=== PATIENT | female | born 1990 | race Caucasian/White ===

== ENCOUNTER 2023-02-24 20:10 | Inpatient (IN) | payer OTHER ==
[2023-02-24 20:48] VITALS: BMI 22.0
[2023-02-24] MEDS ORDERED: hydrOXYzine PAMOATE 25 MG CAPSULE (FP) PO PRN (21:46)
[2023-02-24] MEDS ORDERED: ONDANSETRON *ODT* 4 MG TABLET SL PRN (21:46)
[2023-02-24] MEDS ORDERED: NALOXONE HCL (KLOXXADO) 8 MG SPRAY NS PRN (21:46)
[2023-02-24] MEDS ORDERED: MAGNESIUM HYDROX 2400MG/30ML ORAL SUSPENSION 30 ML CUP PO PRN (21:46)
[2023-02-24] MEDS ORDERED: guaiFENesin 600 MG TABLET.ER (FP) PO PRN (21:46)
[2023-02-24] MEDS ORDERED: METHOCARBAMOL 500 MG TABLET PO PRN (21:46)
[2023-02-24] MEDS ORDERED: NALOXONE HCL 0.4 MG/ML VIAL IM PRN (21:46)
[2023-02-24] MEDS ORDERED: IBUPROFEN 600 MG TABLET (FP) PO PRN (21:46)
[2023-02-24] MEDS ORDERED: POLYETHYLENE GLYCOL (HEALTHYLAX) 3350 17 GM PACKET PO PRN (21:46)
[2023-02-24] MEDS ORDERED: IBUPROFEN 400 MG TABLET (FP) PO PRN (21:46)
[2023-02-24] MEDS ORDERED: BISMUTH SUBSALICYLATE 524 MG/30 ML PO PRN (21:46)
[2023-02-24] MEDS ORDERED: ACETAMINOPHEN 325 MG TABLET (FP) PO PRN (21:46)
[2023-02-24] MEDS ORDERED: DICYCLOMINE HCL 10 MG CAPSULE PO PRN (21:46)
[2023-02-24] MEDS ORDERED: NICOTINE POLACRILEX 4 MG GUM BUC PRN (21:46)
[2023-02-24] MEDS ORDERED: MAG HYDROX/AL HYDROX/SIMETH 30 ML UNIT-DOSE CUP PO PRN (21:46)
[2023-02-24] MEDS ORDERED: LOPERAMIDE HCL 2 MG CAPSULE PO PRN (21:46)
[2023-02-24] MEDS ORDERED: BENZONATATE 200 MG CAPSULE PO PRN (21:46)
[2023-02-24] MEDS ORDERED: BENZOCAINE/MENTHOL (CHLORASEPTIC ) LOZENGE MM PRN (21:46)
[2023-02-24] MEDS ORDERED: THIAMINE HCL 100 MG TABLET (FP) PO SCH (22:00)
[2023-02-24] MEDS: MELATONIN 5 MG TABLETS PO SCH ×2 (22:49→22:55)
[2023-02-24] MEDS ORDERED: diazePAM 5 MG TABLET PO PRN (23:06)
[2023-02-24] MEDS: diazePAM 5 MG TABLET PO SCH (23:21)
[2023-02-25] MEDS: diazePAM 5 MG TABLET PO SCH ×3 (05:45→17:55)
[2023-02-25] MEDS ORDERED: cloNIDine HCL 0.1 MG TABLET PO PRN (09:50)
[2023-02-25] MEDS ORDERED: methaDONE HCL 10 MG TABLET (FOR DETOX USE ONLY) PO ONE (09:50)
[2023-02-25] MEDS ORDERED: NICOTINE 21 MG/24 HOURS TOPICAL PATCH TD SCH (10:00)
[2023-02-25] MEDS ORDERED: PRENATAL VITAMINS W/ FOLIC ACID TABLET (FP) PO SCH (10:00)
[2023-02-25 10:15] LABS: CHLORIDE 110 mmol/L (98-107); POTASSIUM 3.6 mmol/L (3.5-5.1); SODIUM 144 mmol/L (136-145)
[2023-02-25 10:20] LABS: BLOOD UREA NITROGEN 19.7 mg/dL (7-18); CALCIUM 8.1 mg/dL (8.5-10.1)
[2023-02-25 10:21] LABS: ALBUMIN 3.1 g/dl (3.4-5.0); ANION GAP 6 mmol/L (4-13); CO2 29 mmol/L (21-32); GLUCOSE,RANDOM 125 mg/dL (74-106)
[2023-02-25 10:23] LABS: SGPT/ALT 37 U/L (13-61)
[2023-02-25 10:24] LABS: CREATININE 0.7 mg/dL (0.55-1.3); SGOT/AST 29 U/L (15-37)
[2023-02-25 10:25] LABS: BILIRUBIN,TOTAL 0.3 mg/dL (0.2-1); TOT PROT 6.2 g/dl (6.4-8.2)
[2023-02-25 10:26] LABS: ALK PHOS 72 U/L (45-117)
[2023-02-25 10:33] LABS: HEMATOCRIT 33.9 % (32.4-45.2); HEMOGLOBIN 11.4 GM/dL (10.7-15.3); MCH 28.9 pg (25.7-33.7); MCHC 33.5 g/dl (32.0-36.0); MEAN CELL VOLUME 86.1 fl (80-96); MEAN PLT VOLUME 8.6 fl (7.5-11.1); PLATELET COUNT 323 10^3/uL (134-434); RBC 3.94 M/mm3 (3.60-5.2); RDW 14.3 % (11.6-15.6); WHITE BLOOD COUNT 7.2 K/mm3 (4.0-10.0)
[2023-02-25] MEDS ORDERED: methaDONE HCL 10 MG TABLET (FOR DETOX USE ONLY) ONE (10:58)
[2023-02-25 13:26] VITALS: BP 106/59; PULSE 83; RESP 15; TEMP 97.7
[2023-02-26] MEDS ORDERED: diazePAM 5 MG TABLET PO SCH (06:00)
[2023-02-27] MEDS ORDERED: diazePAM 5 MG TABLET PO SCH (06:00)
[2023-02-27] MEDS ORDERED: methaDONE HCL 10 MG TABLET (FOR DETOX USE ONLY) PO ONE (10:00)
[2023-02-28] MEDS ORDERED: diazePAM 5 MG TABLET PO ONE (06:00)
[2023-03-01] MEDS ORDERED: methaDONE HCL 10 MG TABLET (FOR DETOX USE ONLY) PO ONE (10:00)
== END 2023-02-25 17:59 | disposition left against medical advice (07) | DRG 770 ==
LOC: YASAS 20:10 → Y3N 22:01 → UNDOADMIN 22:01 → UNDODISIN 02-25 17:59
PROVIDERS: ADMIT Allergy & Immunology; ATTEND Allergy & Immunology
PROC: HZ2ZZZZ Detoxification Services for Substance Abuse Treatment (ICD-10-PCS; principal; 2023-02-24)
DX: F11.23 Opioid dependence with withdrawal (principal); F10.230 Alcohol dependence with withdrawal, uncomplicated; F13.230 Sedative, hypnotic or anxiolytic dependence with withdrawal, uncomplicated; F17.210 Nicotine dependence, cigarettes, uncomplicated; F42.4 Excoriation (skin-picking) disorder; F41.9 Anxiety disorder, unspecified; K21.9 Gastro-esophageal reflux disease without esophagitis; M54.50 Low back pain, unspecified; G89.29 Other chronic pain; Z86.11 Personal history of tuberculosis; Z88.0 Allergy status to penicillin
CPT/HCPCS: 36415; 80053; 80307; 81025; 85027; 86780; 87635; 87811; 93005; 93010